=== PATIENT | female | born 1970 | race Caucasian/White ===

== ENCOUNTER → 2018-11-28 | Day surgery (SDC) | payer OTHER ==
[~2018-11-28] MED LIST: ACETAMINOPHEN/CODEINE 300MG - 30MG TAB ONE; BACITRACIN 50,000 UNIT VIAL ONE; BUPIVACAINE HCL 0.5% INJ 30 ML VIAL INJ ONE; CEFAZOLIN SOD 1 GM/NS 50ML 100 ML IV ONE; EPINEPHRINE HCL 1:1000 1ML 1 MG/ML AMP ONE; FENTANYL CITRATE/PF 100MCG/2 ML INJ ONE; HYDROMORPHONE 2MG/ML 2 MG/ML ML ONE; MIDAZOLAM HCL 2 MG/2 ML VIAL ONE
[2018-11-28 13:52] VITALS: BP 145/94
--- NOTE | 2018-11-29 16:41 | Operative Report ---
DATE OF PROCEDURE: 11/28/2018 SURGEON: Jarvis Vargas MD PREOPERATIVE DIAGNOSES: Displaced left fibular fracture, displaced left posterior malleolus fracture, and left deltoid ligament sprain. POSTOPERATIVE DIAGNOSES: Displaced left fibular fracture, displaced left posterior malleolus fracture, and left deltoid ligament sprain. OPERATIONS AND PROCEDURES PERFORMED: The patient underwent a closed reduction of the left ankle mortise and open reduction and internal fixation of the left fibular fracture and an allograft bone graft of the left fibular fracture. SPLITTER TENDER: There was no assistant chief of police. ANESTHESIA: General endotracheal intubation anesthesia. IV FLUIDS: Per the anesthesia record. BRIEF DESCRIPTION OF THE PATIENT'S SURGICAL INDICATIONS AND PROCEDURE: Ms. Escoto is a 48-year-old female, who presented to my office with a subacute injury to her left ankle. Approximately 2 weeks prior to presenting to the office, she had experienced a fall in a parking lot, when she slipped on wet pavement. The patient did not seek immediate medical attention. She thought she had sprained her ankle. She ultimately presented to my office with persistent ankle discomfort and x-ray finding consisted a trimalleolar equivalent ankle fracture. Treatment options were discussed with the patient and she chose to pursue surgery in the treatment of her injury. BRIEF DESCRIPTION OF THE PATIENT'S OPERATIVE PROCEDURE: Ms. Escoto was taken to the operating room and placed on the operating room table in supine position. Following induction of general anesthesia as well as endotracheal intubation, the patient's left lower extremity was examined under anesthesia, where she was found to have swelling and bruising about her ankle joint. Fluoroscopic evaluation demonstrated a displaced fibular fracture with widening of the ankle mortise. There was also a mildly displaced posterior malleolus injury. There was no evidence of a medial malleolus fracture. The patient's lower extremity was prepped and draped in standard surgical fashion. The case was begun by reducing the patient's ankle mortise in a close fashion. An incision was then created directly over the fibula. This incision was carried through the skin only. Blunt dissection was used to deepen the incision to the level of the fibula fracture. The patient was found to have displaced injury with significant callus formation at the level of her fracture site. The callus was taken down. The fibular fracture was mobilized and reduced with a fracture reduction clamp. This resulted in acceptable realignment of the patient's injury. However, she had a significant bone defect at the level of the fracture site. Allograft bone graft was used at the time of surgery to bone graft this area prior to stabilization of the injury. The fracture was stabilized using a one-third tubular locking plate. The plate was affixed to the fibula with combinations of locking and cortical screws. The position of the plate as well as reduction of fracture was then assessed using fluoroscopy. The reduction of the fracture resulted in concomitant reduction of the posterior malleolar fracture fragment and re-establishment of the articular surface of the distal tibia. The talus was also centered on both tibia. The wound was copiously irrigated. The wound was then closed in a multilayer fashion. Sterile dressings were applied as well as a well-padded multi sided splint. The patient was then awakened and taken to the postanesthesia care in stable condition. MD ANA Kelly/JORDAN /[id number]
== END | disposition home or self-care (01) ==
LOC: OR 08:29
PROVIDERS: ATTEND Specialist
DX: S82.62XA Displaced fracture of lateral malleolus of left fibula, initial encounter for closed fracture (principal); S82.392A Other fracture of lower end of left tibia, initial encounter for closed fracture; S93.422A Sprain of deltoid ligament of left ankle, initial encounter; R03.0 Elevated blood-pressure reading, without diagnosis of hypertension; W01.0XXA Fall on same level from slipping, tripping and stumbling without subsequent striking against object, initial encounter; Y92.481 Parking lot as the place of occurrence of the external cause; Z01.810 Encounter for preprocedural cardiovascular examination; Z68.34 Body mass index [BMI] 34.0-34.9, adult
CPT/HCPCS: 27792; 27899; 93005; C1713 ×2; J0171; J0690; J1170; J2250; J3010